=== PATIENT | male | born 1970 | race African-American/Black ===

== ENCOUNTER 2020-03-13 14:30 | Inpatient (IN) | payer OTHER ==
[~2020-03-13] VITALS: Ht 167.6 cm; Wt 87.2 kg
[2020-03-13 14:35] VITALS: BP 151/96
[2020-03-13 15:08] LABS: BE(vivo) -1.3 mmol/L (-2 to +3); HCO3 23.8 mmol/L (22.0-26.0); PCO2 41.8 mmHg (35.0-45.0); PO2 64.3 mmHg (80.0-100.0); pH 7.374 (7.360-7.450); sO2 92.1 % (92.0-98.0)
[2020-03-13 15:53] LABS: BASOPHILS 0.3 % (0.0-2.0); EOSINOPHILS 0.6 % (0.0-3.0); HEMATOCRIT 36.2 % (42.0-52.0); HEMOGLOBIN 11.8 gm/dL (14.0-18.0); LYMPHOCYTES 8.2 % (24.0-44.0); MCH 30.6 pg (26.0-34.0); MCHC 32.7 g/dL (28.0-37.0); MCV 93.6 fL (80.0-100.0); MONOCYTES 3.9 % (1.0-8.0); PLATELET COUNT 184 thou/uL (150-400); RBC 3.87 mil/uL (4.50-6.00); RDW 14.8 % (10.5-14.5); WBC 9.2 thou/uL (4.0-11.0)
[2020-03-13 16:08] LABS: ANION GAP 11 mmol/L (7-16); BUN 12 mg/dL (7-18); CALCIUM 8.5 mg/dL (8.5-10.1); CHLORIDE 109 mmol/L (98-107); CO2 25 mmol/L (21-32); CREATININE 1.1 mg/dL (0.7-1.3); GLUCOSE 211 mg/dL (74-106); SODIUM 145 mmol/L (136-145)
[2020-03-13 16:11] LABS: ALBUMIN 3.6 g/dL (3.4-5.0); SGOT 19 U/L (15-37); SGPT 30 U/L (16-63); TOTAL BILIRUBIN 0.5 mg/dL (0.2-1.0); TOTAL PROTEIN 6.3 g/dL (6.4-8.2); TROPONIN-I <0.06 ng/mL (<0.06)
[2020-03-13] MEDS ORDERED: KLOR-CON 10 ER10 MEQ PO (17:47)
[2020-03-13] MEDS ORDERED: BUMETANIDE 1 MG1 M1 PO (17:47)
[2020-03-13] MEDS ORDERED: INDOMETHACIN 5050 M1 PO (17:47)
[2020-03-13] MEDS ORDERED: LASIX 40 MG TAB40 MG PO (17:48)
[2020-03-13] MEDS ORDERED: NITROSTAT0.4 M1 SUBLING (17:48)
[2020-03-13] MEDS ORDERED: SINGULAIR 10 MG10 MG PO (17:49)
[2020-03-13] MEDS ORDERED: PROMETHAZINE12.5 M1 PO (17:49)
[2020-03-13] MEDS ORDERED: METFORMIN HCL500 M3 PO (17:49)
[2020-03-13] MEDS ORDERED: ALLOPURINOL 10100 M3 PO (17:50)
[2020-03-13] MEDS ORDERED: PLAVIX 75 MG TA75 MG PO (17:50)
[2020-03-13] MEDS ORDERED: COREG6.25 MG PO (17:50)
[2020-03-13] MEDS ORDERED: VENTOLIN HFA 1818 GM INH (17:51)
[2020-03-13] MEDS ORDERED: ROSUVASTATIN CA20 MG PO (17:51)
[2020-03-13] MEDS ORDERED: PROAIR HFA8.5 GM INH (17:51)
[2020-03-14 03:33] VITALS: BP 108/64
--- NOTE | 2020-03-14 03:40 | NUR ---
Attempted to call report to [address] [place] [address]. Unable to take report and will call back
[2020-03-14 04:03] VITALS: BP 139/79
[2020-03-14 04:16] VITALS: BP 138/94
[2020-03-14] MEDS ORDERED: AMIODARONE HCL400 MG PO (06:16)
[2020-03-14] MEDS ORDERED: FLONASE 0.05%50 MCG NARES (06:18)
[2020-03-14] MEDS ORDERED: SPIRIVA INH (06:19)
[2020-03-14] MEDS ORDERED: ZYRTEC 10 MG TA10 MG PO (06:22)
[2020-03-14] MEDS ORDERED: GABAPENTIN100 MG PO (06:26)
--- NOTE | 2020-03-14 06:27 | NUR ---
PATIENT ARRIVE TO THE UNIT AT 0412. PATIENT IS A&OX4. USING URINAL AT BEDSIDE. FALL PRECAUTIONS IN PLACE; HX OF FALLING AND WEAK GAIT. NOTED SOA W/ ACTIVITY IN ER. ADMISSION PROCESS COMPLETED; PT POOR HISTORIAN FOR DIAGNOSES AND CURRENT MEDICATIONS. ENCOURAGED TO CALL FOR ASSISTENCE WHEN GETTING UP.
[2020-03-14] MEDS ORDERED: NAPROXEN500 MG PO (06:28)
[2020-03-14] MEDS ORDERED: SERTRALINE HCL100 MG PO (06:30)
[2020-03-14 07:22] VITALS: BP 129/99
--- NOTE | 2020-03-14 11:17 | EKG ---
[place] [address] [address] [facility] [place] [address] ELECTROCARDIOGRAM REPORT Name: ELVER OWUSU Room #: 211-P ADM IN M.R.#: [id number] Admission: 03/13/20 Attend Phys: Isacc Isaacs MD Discharge: Date of : 66 Report #: [id number] [facility] ED Test Date: 2020-03-13 Test Time: 14:21:21 Pat Name: ELVER OWUSU Department: Room: 211 Gender: M A P Supervisor: JES : [id number] Requested By: Jennifer Yadav Order Number: [id number] MD: Danilo Sams Measurements Intervals [place] Rate: 100 P: 62 LA: 186 QRS: -2 QRSD: 102 T: 151 QT: 333 QTc: 430 Interpretive Statements Sinus tachycardia Probable left atrial enlargement LVH with secondary repolarization abnormality No previous ECG available for comparison Electronically Signed On 03-14-2020 11:17:09 [employer] by Danilo Sams [email or web address] <ELECTRONICALLY SIGNED> By: Danilo Sams MD, [facility] 03/14/20 1117 1421 1421 Danilo Sams MD, FACC /EPI
[2020-03-14 11:54] VITALS: BP 127/81
--- NOTE | 2020-03-14 13:44 | NUR ---
INSISTS ON LEAVING AMA. IV SITE DISCONTINUED. TELEMETRY DISCONTINUED, CLEANED AND PUT AWAY.
--- NOTE | 2020-03-15 07:08 | 2DMMODE ---
[facility] [address] [place] [address] 2 D/M-MODE ECHOCARDIOGRAM Name: ELVER OWUSU Room #: 211-P [facility] IN M.R.#: [id number] Admission: 03/13/20 Attend Phys: Isacc Isaacs MD Discharge: 03/14/20 Date of : 66 Report #: [id number] THIS REPORT FOR: cc: GIORGIO Dennis family physician/PCP GIORGIO - Jeannie family physician/PCP Danilo Sams MD [facility] ~ APPROVED REPORT Study performed: 03/14/2020 11:02:50 EXAM: Comprehensive 2D, Doppler, and color-flow Echocardiogram Patient Location: Bedside Room #: 211 Status: on-call BSA: 1.97 HR: 96 bpm BP: 129/99 mmHg Rhythm: NSR Other Information Study Quality: Adequate Risk Factors: Cardiac Risk Factors: HTN, DM Indications COPD Dyspnea Pacemaker 2D Dimensions IVSd: 9.78 (7-11mm) LVOT Diam: 19.00 (18-24mm) LVDd: 61.33 mm PWd: 11.22 (7-11mm) Ascending Ao: 29.27 (22-36mm) LVDs: 56.32 (25-40mm) Aortic Root: 32.10 mm LV Single Plane 4CH: 30.23 % LV Single Plane 2CH: 23.82 % Biplane EF: 26.5 % Volumes Left Atrial Volume (Systole) Single Plane 4CH: 88.59 mL Single Plane 2CH: 112.28 mL LA ESV Index: 55.00 mL/m2 [facility] [place] [address] 2 D/M-MODE ECHOCARDIOGRAM Name: ELVER OWUSU Room #: 211-P [facility] IN M.R.#: [id number] Admission: 03/13/20 Attend Phys: Isacc Isaacs, Discharge: 03/14/20 Date of : 66 Report #: [id number] Aortic Valve AoV Peak Rubens.: 1.35 m/s AO Peak Gr.: 7.24 mmHg LVOT Max P.07 mmHg LVOT Max V: 0.88 m/s MANNY Vmax: 1.80 cm2 Mitral Valve E/A Ratio: 3.2 MV Decel. Time: 113.80 ms MV E Max Rubens.: 1.23 m/s MV A Rubens.: 0.39 m/s MV PHT: 33.00 ms IVRT: 69.20 ms TDI E/Lateral E': 30.75 E/Medial E': 30.75 Medial E' Rubens.: 0.04 m/s Lateral E' Rubens.: 0.04 m/s Pulmonary Valve PV Peak Rubens.: 0.84 m/s PV Peak Gr.: 2.84 mmHg Pulmonary Vein P Vein S: 0.39 m/s P Vein A: 0.36 m/s P Vein D: 0.73 m/s P Vein A Dur.: 72.7 msec P Vein S/D Ratio: 0.53 Tricuspid Valve TR Peak Rubens.: 3.02 m/s RAP Estimate: 10.00 mmHg TR Peak Gr.: 36.41 mmHg PA Pressure: 46.00 mmHg Left Ventricle Left ventricle is dilated. There is global hypokinesis of the left ventricle. There is normal left ventricular wall thickness. Left ventricular systolic function is moderate to severely decreased. LVEF is 25-30%. Right Ventricle Right ventricle is mildly dilated. The right ventricular systolic function mildly hypokinetic Pacemaker lead is present in the right ventricle. Atria Left atrium is severely dilated. Right atrium is dilated. Pacemaker [facility] [address] [place] [address] 2 D/M-MODE ECHOCARDIOGRAM Name: ELVER OWUSU Room #: [facility] IN M.R.#: [id number] Admission: 03/13/20 Attend Phys: Isacc Isaacs, Discharge: 03/14/20 Date of : 66 Report #: [id number] lead is present in the right atrium. Aortic Valve The aortic valve is normal in structure. No aortic regurgitation is present. There is no aortic valvular stenosis. Mitral Valve The mitral valve is normal in structure. Mild to moderate mitral regurgitation. No evidence of mitral valve stenosis. Tricuspid Valve The tricuspid valve is normal in structure. Mild tricuspid regurgitation. Pulmonary artery pressure is 46 mmHg. Pulmonic Valve The pulmonary valve is normal in structure. Mild pulmonic regurgitation. Great Vessels The aortic root is normal in size. The ascending aorta is normal in size. IVC is dilated and collapses >50% with inspiration. Pericardium There is no pericardial effusion. <Conclusion> Normal left ventricle size with mild concentric hypertrophy Global hypokinesis ejection fraction of 25/30% Right ventricle mildly dilated/hypokinetic Moderate to severe left atrial enlargement Mild right atrial enlargement Color-flow Doppler study performed the aortic/mitral/tricuspid/pulmonary valve Normal aortic valve structure and function Mildmoderate mitral valve insufficiency Pacer wire detected in the right ventricle Mild tricuspid valve insufficiency Pulmonary systolic pressure estimated 46 mmHg No pericardial effusion <ELECTRONICALLY SIGNED> By: Danilo Sams MD, FACC 03/15/20707 7 7 Danilo Sams MD, FACC /INF
[2020-03-15] MEDS ORDERED: ELIQUIS5 M1 PO (09:02)
[2020-03-15] MEDS ORDERED: PREDNISONE 5 MG5 M1 PO (09:02)
== END 2020-03-14 13:40 | disposition left against medical advice (07) | DRG 175 ==
LOC: ER 14:30 → 2N 21:16 → EROBS 21:16 → 2N 03-14 04:02
PROVIDERS: Physician Assistant; ADMIT Internal Medicine; ATTEND Internal Medicine
DX: I26.99 Other pulmonary embolism without acute cor pulmonale (principal); J96.01 Acute respiratory failure with hypoxia; J44.1 Chronic obstructive pulmonary disease with (acute) exacerbation; I42.0 Dilated cardiomyopathy; I50.9 Heart failure, unspecified; Z20.828 Contact with and (suspected) exposure to other viral communicable diseases; E11.9 Type 2 diabetes mellitus without complications; G47.33 Obstructive sleep apnea (adult) (pediatric); M10.9 Gout, unspecified; E78.5 Hyperlipidemia, unspecified; F41.9 Anxiety disorder, unspecified; I27.20 Pulmonary hypertension, unspecified; F17.210 Nicotine dependence, cigarettes, uncomplicated; E78.00 Pure hypercholesterolemia, unspecified; I11.0 Hypertensive heart disease with heart failure; Z53.29 Procedure and treatment not carried out because of patient's decision for other reasons; Z88.6 Allergy status to analgesic agent; Z88.0 Allergy status to penicillin; I25.2 Old myocardial infarction; Z82.49 Family history of ischemic heart disease and other diseases of the circulatory system; Z95.0 Presence of cardiac pacemaker